=== PATIENT | female | born 1985 | race African-American/Black ===

== ENCOUNTER 2016-06-30 22:07 | Emergency (ER) | payer OTHER ==
[~2016-06-30] VITALS: Ht 177.8 cm; Wt 70.0 kg
[2016-06-30 22:08] VITALS: BP 134/78; PULSE 72; RESP 18; TEMP 98.2; O2SAT 100
[2016-06-30] MEDS ORDERED: MACR100C2 PO (22:39)
--- NOTE | 2016-06-30 22:39 | PD ---
HPI Chief Complaint: Complaint Time Seen by Provider: 22:26 Travel History International Travel<30 days: No Contact w/Intl Traveler<30days: No Traveled to known affect area: No History of Present Illness HPI 31-year-old female complains of dysuria. Patient states that she is late for her menstruation period this month. Patient states that her last menstruation period was May 19. Patient took a home test and it was positive. Patient is 4 para 2 AB 1. Patient denies abdominal pain. Patient denies any nausea vomiting diarrhea. Patient states that she has vaginal discharge recently. Patient denies any vaginal bleeding. Patient denies any back pain fever chills. PFSH Past Medical History Seizures: Yes Tetanus Vaccination: Unknown Influenza Vaccination: No ?: : 4 Para: 2 Miscarriage: 1 Past Surgical History Surgical History: No Previous Surgery Social History Alcohol Use: No Tobacco Use: Yes Substance Use: No Allergies-Medications (Allergen,Severity, Reaction): Coded Allergies: No Known Allergies (Unverified , 06/30/16) Reported Meds & Prescriptions Reported Meds & Active Scripts Active Macrobid (Nitrofurantoin Monoh/Nitrofur Macro) 100 Mg Cap 100 Mg PO BID Review of Systems General / Constitutional: No: Fever Eyes: No: Visual changes HENT: No: Headaches Cardiovascular: No: Chest Pain or Discomfort Respiratory: No: Shortness of Breath Gastrointestinal: No: Abdominal Pain Genitourinary: Positive: Dysuria Musculoskeletal: No: Pain Skin: No Rash Neurologic: No: Weakness Psychiatric: No: Depression Endocrine: No: Polydipsia Hematologic/Lymphatic: No: Easy Bruising Physical Exam Narrative GENERAL: Well-nourished, well-developed patient. SKIN: Warm and dry. HEAD: Normocephalic. EYES: No scleral icterus. No injection or drainage. NECK: Supple, trachea midline. No JVD or lymphadenopathy. CARDIOVASCULAR: Regular rate and rhythm without murmurs, gallops, or rubs. RESPIRATORY: Breath sounds equal bilaterally. No accessory muscle use. GASTROINTESTINAL: Abdomen soft, non-tender, nondistended. MUSCULOSKELETAL: No cyanosis, or edema. BACK: Nontender without obvious deformity. No CVA tenderness. Data Data Last Documented VS Vital Signs Date Time Temp Pulse Resp B/P Pulse Ox O2 Delivery O2 Flow Rate FiO2 06/30/16 22:08 98.2 72 18 134/78 100 Room Air Orders Urinalysis - C+S If Indicated (06/30/16 22:34) Ed Urine Pregnancytest Poc (06/30/16 22:34) Labs Laboratory Tests Test 06/30/16 22:45 Urine Color YELLOW Urine Turbidity CLEAR Urine pH 6.0 Urine Specific [place] 1.028 Urine Protein NEG mg/dL Urine Glucose (UA) NEG mg/dL Urine Ketones NEG mg/dL Urine Occult Blood NEG Urine Nitrite NEG Urine Bilirubin NEG Urine Urobilinogen LESS THAN 2.0 MG/DL Urine Leukocyte Esterase NEG Urine RBC LESS THAN 1 /hpf Urine WBC LESS THAN 1 /hpf Urine Squamous Epithelial <1 /hpf Cells Microscopic Urinalysis Comment CULT NOT INDICATED MDM Medical Decision Making Medical Screen Exam Complete: Yes Emergency Medical Condition: Yes Interpretation(s) UA is negative. Differential Diagnosis Differential diagnosis including urethritis, UTI, pyelonephritis. Narrative Course 31-year-old female with dysuria. Patient is 6 weeks by date. Diagnosis Primary Impression: Urethritis Patient Instructions: General Instructions Additional Instructions: Macrobid as directed. Follow-up with personal physician. Return if worse. Return immediately if abdominal pain, pelvic pain, vaginal bleeding. Over-the- counter Monistat as needed. Med/Other Pt SpecificInfo: Prescription(s) given Scripts Nitrofurantoin Monohydrate Macrocrystals (Macrobid)100 Mg [id number] Mg PO BID #14 CAP Ref 0 Prov:Mark Mcdonald MD 06/30/16 Disposition: 01 DISCHARGE HOME Condition: Stable Mark Mcdonald MD Jun 30, 2016 22:39 Mark Mcdonald MD Jun 30, 2016 22:39
[2016-06-30 23:22] LABS: BLOOD, URINE NEG (NEG); GLUCOSE,URINE NEG (NEG); KETONE, URINE NEG (NEG); NITRITE,URINE NEG (NEG); SQUAMOUS EPITHELIAL CELL URINE <1 /hpf (0-5); URINE COLOR YELLOW (YELLW/STRAW)
[2016-06-30 23:24] LABS: COMMENT (UR) CULT NOT INDICATED; CULTURE IF INDICATED CULT NOT INDICATED
== END 2016-07-01 00:38 | disposition home or self-care (01) ==
LOC: NEPE 22:07
DX: N34.2 Other urethritis (principal); Z72.0 Tobacco use
CPT/HCPCS: 81001; 84703; 99284